=== PATIENT | male | born 1975 | race Caucasian/White ===

== ENCOUNTER 2018-03-11 15:04 | Emergency (ER) | payer SELFPAY ==
[~2018-03-11] VITALS: Ht 170.2 cm; Wt 66.5 kg
[2018-03-11 15:13] VITALS: BP 108/62; PULSE 76; RESP 16; TEMP 98; O2SAT 98
[2018-03-11] MEDS ORDERED: PERI0.126 SWISH-SPIT (15:24)
[2018-03-11] MEDS ORDERED: CLIN150 PO (15:24)
--- NOTE | 2018-03-11 15:24 | PD ---
HPI Chief Complaint: Oral / Dental Pain or Problem Time Seen by Provider: 15:16 Travel History International Travel<30 days: No Contact w/Intl Traveler<30days: No Traveled to known affect area: No History of Present Illness HPI The patient is a 42-year-old -[place] male who presents to the emergency department for dental pain. The patient has a history of poor dentition with tooth rot, which she attributes to being in detention and using the toothpaste in detention. The patient just recently moved from [place] to [place], does not have a local dentist. The patient complains of pain in the lower aspect of the mouth with mild swelling along the gumline. He does note sensitivity to heat and cold, the pain radiates up to the right ear. He denies any fever, chills, or sweats. Symptoms are moderate. He does note a history of allergies to penicillin and hydrocodone. PFSH Past Medical History Medical History: Denies Significant Hx Past Surgical History Surgical History: No Previous Surgery Social History Tobacco Use: Yes Allergies-Medications (Allergen,Severity, Reaction): Coded Allergies: Penicillins (Verified Allergy, Severe, Anaphylaxis, 03/11/18) Review of Systems General / Constitutional: No: Fever HENT: Positive: Dental Difficulties Gastrointestinal: No: Nausea, Vomiting Skin: No Rash Physical Exam Narrative GENERAL: Awake, alert, pleasant 42-year-old male who appears his stated age and is in no acute respiratory distress. SKIN: Focused skin assessment warm/dry. HEAD: Atraumatic. Normocephalic. EYES: Pupils equal and round. No scleral icterus. No injection or drainage. ENT: No nasal bleeding or discharge. Patient has poor dentition, most of the teeth and anterior aspect are avulsed near the gumline. He does have some tenderness along the anterior inferior right incisors with mild swelling along the gumline. No palpable abscess. NECK: Trachea midline. No JVD. MUSCULOSKELETAL: No obvious deformities. No clubbing. No cyanosis. No edema. NEUROLOGICAL: Awake and alert. No obvious cranial nerve deficits. Motor grossly within normal limits. Normal speech. PSYCHIATRIC: Appropriate mood and affect; insight and judgment normal. Data Data Last Documented VS Vital Signs Date Time Temp Pulse Resp B/P (MAP) Pulse Ox O2 Delivery O2 Flow Rate FiO2 03/11/18 15:13 98.0 76 16 108/62 (77) 98 Orders Orders Clindamycin (Cleocin) (03/11/18 15:30) Ibuprofen (Motrin) (03/11/18 15:30) [facility] Medical Decision Making Medical Screen Exam Complete: Yes Emergency Medical Condition: Yes Medical Record Reviewed: Yes Differential Diagnosis Differential diagnosis includes ANUG, dental abscess, odontalgia, pericoronitis , otitis media, TMJ, tic douloureux. Narrative Course The patient does have poor dentition, will be provided dental information. He was administered clindamycin and ibuprofen. The patient will be placed on clindamycin and then once the clindamycin is finished, he is advised to take Peridex until he follows up with a dentist or oral surgeon. Ibuprofen as needed for pain. Diagnosis Primary Impression: Odontalgia Patient Instructions: General Instructions Additional Instructions: Please provide the patient a copy of the dental information. Medications as directed. Follow-up with a dentist and/or oral surgeon. Avoid smoking to avoid dry socket. Med/Other Pt SpecificInfo: Prescription(s) given Scripts Chlorhexidine Gluconate (Mouth) Liq (Peridex Liq) 0.12% Soln 15 ML SWISH-SPIT BID, #473 ML 0 Refills Prov: Magdaleno Chen MD 03/11/18 Clindamycin (Cleocin) 150 Mg Cap 150 MG PO Q6H for Infection for 10 Days, #40 CAP 0 Refills Prov: Magdaleno Chen MD 03/11/18 Disposition: 01 DISCHARGE HOME Condition: Stable Magdaleno Chen MD March 11, 2018 15:24
[2018-03-11] MEDS ORDERED: CLINDAMYCIN 150 MG CAP PO ONE (15:30)
[2018-03-11] MEDS ORDERED: IBUPROFEN 600 MG TAB PO ONE (15:30)
== END 2018-03-11 15:35 | disposition home or self-care (01) ==
LOC: PHEFT 15:04
DX: K08.89 Other specified disorders of teeth and supporting structures (principal); Z72.0 Tobacco use; Z88.0 Allergy status to penicillin; Z88.5 Allergy status to narcotic agent
CPT/HCPCS: 99283